=== PATIENT | male | born 2000 | race Two or more races ===

== ENCOUNTER 2023-01-28 12:00 | Emergency (ER) | payer OTHER ==
[~2023-01-28] VITALS: Ht 177.8 cm; Wt 113.4 kg
[2023-01-28] MEDS ORDERED: AMOXICILLIN250 MG PO (13:16)
== END 2023-01-28 14:48 | disposition home or self-care (01) ==
LOC: EMR PED 12:00
DX: J02.9 Acute pharyngitis, unspecified (principal)